=== PATIENT | male | born 1970 | race Caucasian/White ===

== ENCOUNTER 2022-07-25 07:19 | Day surgery (SDC) | payer OTHER, SELFPAY ==
--- NOTE | 2022-07-22 14:28 | HO.ANESPROP2 ---
Documented by User: Sindy Duarte NP 07/22/22 14:28 HPI - Anesthesia Eval Consult details Narrative: 52yo for Upper Endoscopy and Colonoscopy FOR[facility]LY [facility], LATER [facility] Past Medical History Medical History Diabetes GERD (gastroesophageal reflux disease) HTN (hypertension) Hyperlipidemia Sleep apnea treated with continuous positive airway pressure (CPAP) Social History Social History Patient Tobacco Use Status: Never used Tobacco Use of substances other than those prescribed or required for medical reasons: No Are you DNR?: No Advance Directives: No Advance Directives Information Provided: Yes Meds Allergies Allergy/AdvReac Type Severity Reaction Status Date / Time bee pollen [bee stings] Allergy Unknown Verified 07/22/22 14:13 [id number] Reductase AdvReac Unknown Verified 07/25/22 08:14 Inhibitor Home Medications Medication Instructions Recorded Confirmed Last Taken Type bupropion HCl 300 mg 24 hr tablet, 300 mg PO DAILY 07/22/22 07/22/22 Unknown History extended release epinephrine 0.3 mg/0.3 mL 0.3 ml IM ONCE PRN Anaphylaxis 07/22/22 07/22/22 Unknown History injection, auto-injector ibuprofen 800 mg tablet 800 mg PO TID 07/22/22 07/22/22 Unknown History insulin glargine-yfgn 100 unit/mL unit subcut 07/22/22 07/22/22 Unknown History subcutaneous solution (Semglee (insulin glargine-yfgn)) insulin syringe-needle U-100 1/2 07/22/22 07/22/22 Unknown History mL 31 gauge x 15/64 (BD Veo Insulin Syringe Ultra-Fine) losartan 25 mg tablet 25 mg PO DAILY 07/22/22 07/22/22 07/25/22 History lovastatin 40 mg tablet 40 mg PO DAILY 07/22/22 07/22/22 Unknown History metformin 750 mg tablet,extended PO 07/22/22 Unknown History release 24 hr Exam Exam Date and Time: July 22, [id number] Assessment and Plan Assessment Anesthesia Assessment: Chart Reviewed Documented by User: Vinita Starr MD 07/25/22 09:27 [facility] Past Medical History Medical History Diabetes GERD (gastroesophageal reflux disease) HTN (hypertension) Hyperlipidemia Sleep apnea treated with continuous positive airway pressure (CPAP) Family History Family history of problems with anesthesia: No Surgical History History of Problems with Anesthesia: No Social History Social History Patient Tobacco Use Status: Never used Tobacco Use of substances other than those prescribed or required for medical reasons: No Are you DNR?: No Advance Directives: No Advance Directives Information Provided: Yes Meds Allergies Allergy/AdvReac Type Severity Reaction Status Date / Time bee pollen [bee stings] Allergy Unknown Verified 07/22/22 14:13 [id number] Reductase AdvReac Unknown Verified 07/25/22 08:14 Inhibitor Home Medications Medication Instructions Recorded Confirmed Last Taken Type bupropion HCl 300 mg 24 hr tablet, 300 mg PO DAILY 07/22/22 07/22/22 Unknown History extended release epinephrine 0.3 mg/0.3 mL 0.3 ml IM ONCE PRN Anaphylaxis 07/22/22 07/22/22 Unknown History injection, auto-injector ibuprofen 800 mg tablet 800 mg PO TID 07/22/22 07/22/22 Unknown History insulin glargine-yfgn 100 unit/mL unit subcut 07/22/22 07/22/22 Unknown History subcutaneous solution (Semglee (insulin glargine-yfgn)) insulin syringe-needle U-100 1/2 07/22/22 07/22/22 Unknown History mL 31 gauge x 15/64 (BD Veo Insulin Syringe Ultra-Fine) losartan 25 mg tablet 25 mg PO DAILY 07/22/22 07/22/22 07/25/22 History lovastatin 40 mg tablet 40 mg PO DAILY 07/22/22 07/22/22 Unknown History metformin 750 mg tablet,extended PO 07/22/22 Unknown History release 24 hr Exam Height,Weight and Vital Signs: Height 5 ft 8 in Weight 129.274 kg Vital Signs Temp Pulse Resp BP Pulse Ox O2 Del Method 07/25/22 08:31 96.9 F 86 16 140/87 H 96 Room Air Pertinent Lab Results Pertinent Lab Results: Lab Results 07/25/22 07/25/22 07/25/22 Range/Units 08:22 08:22 08:36 WBC 5.8 (4.8-10.8) X10*3/uL RBC 5.06 (4.60-5.80) X10*6/uL Hgb 14.9 (14.0-18.0) g/dl Hct 44.1 (42.0-52.0) % MCV 87.2 (80.0-98.0) fL MCH 29.4 (27.0-33.0) pg MCHC 33.8 (31.0-36.0) g/dl RDW 13.0 (11.0-16.0) % Plt Count 155 L (160-400) X10*3/uL MPV 11.8 (9.4-12.4) fL Immature Gran % (Auto) 0.3 (0.0-0.4) % Neut % (Auto) 52.4 (45-73) % Lymph % (Auto) 35.0 (20-40) % Ellis % (Auto) 7.5 (2-11) % Eos % (Auto) 3.9 (0-4) % Baso % (Auto) 0.9 (0-2) % Lymph # (Auto) 2.0 (1.2-4.9) X10*3/uL Ellis # (Auto) 0.4 (0.1-1.2) X10*3/uL Eos # (Auto) 0.2 (0.0-0.4) X10*3/uL Baso # (Auto) 0.1 (0.0-0.2) X10*3/uL Abs Immat Gran (auto) 0.02 (0.00-0.03) X10*3/uL Absolute Neuts (auto) 3.1 (2.0-8.3) x10*3/uL Absolute Nucleated RBC 0.000 (0.0-0.012) X10*3/uL Nucleated RBC % (auto) 0.0 (0.0-0.2) /100WBC PT 13.4 H (10.0-13.1) SEC INR 1.2 H (0.9-1.1) POC Glucose 114 (60-115) mg/dL Airway Mallampati Class: III TM Dist: >3cm Neck ROM: Full (but occasional pain ) Loose/Missing/Broken Teeth: Yes (Missing molars. Denies broken or loose teeth) Heart: RRR Lungs: CTAB Assessment and Plan Assessment Anesthesia Assessment: Anesthesia Plan Discussed Final Anesthetic Review Family History of Problems with Anesthesia: No History of Problems with Anesthesia: No NPO: Yes ASA Class: III Final Preanesthetic Review: No Changes in Pt Med Stat, Meds/Allgs Chart Reviewed, Consent Obtained/Reviewed and Anes Risks/Benef Reviewed Patient Risk: Intermediate Procedure Risk: Low Assessment/Block/Sedation in SS: Assess/Block/Sedation-SS Anesthetic Plan Anesthetic Plan: GA and MAC: Disposition: Standard PACU
[2022-07-25 08:15] VITALS: BMI 43.3
[2022-07-25 08:26] LABS: MANUAL DIFF FLAG NO
[2022-07-25 08:31] VITALS: BP 140/87; PULSE 86; RESP 16; TEMP 36.1; O2SAT 96
[2022-07-25 08:33] LABS: Basophils Absolute Auto 0.1 X10*3/uL (0.0-0.2); Basophils Percent Auto 0.9 % (0-2); Eosinophils Absolute Auto 0.2 X10*3/uL (0.0-0.4); Eosinophils Percent Auto 3.9 % (0-4); Hematocrit 44.1 % (42.0-52.0); Hemoglobin 14.9 g/dl (14.0-18.0); Imm Gran Abs Auto 0.02 X10*3/uL (0.00-0.03); Imm Gran Pct Auto 0.3 % (0.0-0.4); Mean Corpuscular HGB Conc 33.8 g/dl (31.0-36.0); Mean Corpuscular Hemoglobin 29.4 pg (27.0-33.0); Mean Corpuscular Volume 87.2 fL (80.0-98.0); Mean Platelet Volume 11.8 fL (9.4-12.4); Monocytes Absolute Auto 0.4 X10*3/uL (0.1-1.2); Monocytes Percent Auto 7.5 % (2-11); Neutrophils Absolute Auto 3.1 x10*3/uL (2.0-8.3); Neutrophils Percent Auto 52.4 % (45-73); Platelet Count 155 X10*3/uL (160-400); Red Blood Count 5.06 X10*6/uL (4.60-5.80); White Blood Count 5.8 X10*3/uL (4.8-10.8)
[2022-07-25 08:40] LABS: Glucose, Whole Blood 114 mg/dL (60-115)
[2022-07-25] MEDS: Lactated Ringers 1,000 ML 100 ML IVCONT (08:47)
[2022-07-25 08:51] LABS: INTERNATIONAL NORM RATIO 1.2 (0.9-1.1); Prothrombin Time 13.4 SEC (10.0-13.1)
--- NOTE | 2022-07-25 10:07 | PM.OP ---
Brief Operative Note Date of Service: 07/25/22 Pre-op diagnosis: GERD, Screening Post-op diagnosis: other (Duodenitis, Diverticulosis) Procedure: EGD with biopsies, Colonoscopy to the cecum and TI Surgeon: Cayetano Fraser Anesthesia: MAC Was an Vacuum System Tester used for this Procedure?: No Estimated blood loss (mL): 2.0 Pathology: other (A. Gastric antrum B. EG Junction at 40cm) Condition: stable Disposition: PACU
[2022-07-25 10:10] VITALS: BP 97/42; PULSE 98; RESP 16; TEMP 36.6; O2SAT 98
[2022-07-25 10:13] LABS: Glucose, Whole Blood 127 mg/dL (60-115)
[2022-07-25 10:25] VITALS: BP 138/82; PULSE 84; RESP 16; O2SAT 95
--- NOTE | 2022-07-25 11:01 | OP_ITS ---
DATE OF SERVICE: 07/25/2022 SURGEON: Cayetano Fraser MD INDICATIONS: The patient presents for evaluation of gastroesophageal reflux and colorectal cancer screening. Full consent has been obtained from him for this, including risks of bleeding and perforation. PREOPERATIVE DIAGNOSIS: Gastroesophageal reflux and screening. POSTOPERATIVE DIAGNOSIS: Gastroesophageal reflux and screening, minimal hiatal hernia, mild gastritis, duodenitis, sigmoid diverticulosis, and internal hemorrhoids. PROCEDURE PERFORMED: Esophagogastroduodenoscopy with biopsies, and colonoscopy to the cecum and terminal ileum. ESTIMATED BLOOD LOSS: COMPLICATIONS: ANESTHESIA: Monitored anesthesia care. ASSISTANTS: SPECIMENS: DESCRIPTION OF PROCEDURE: The patient was placed in the left lateral decubitus position. The Olympus video gastroscope was passed in the posterior oropharynx and upper esophagus under direct vision. The scope was passed slowly to the distal esophagus. The gastroesophageal junction appeared at 40 cm. There was some very minimal irregularity but no evidence of esophagitis nor any gross evidence of Marks's mucosa. The scope entered the stomach. There was a minimal hiatal hernia. The scope was advanced to pylorus, and the duodenum was cannulated to the descending portion. The duodenum including the bulb appeared normal other than some mild changes of duodenitis in the duodenal bulb with some erythema and edema. There were no erosions or ulcerations. The scope was withdrawn back in the stomach. The gastric antrum and body appeared normal with good peristalsis other than some minimal areas of erythema and edema. Biopsies were obtained from the antrum. The scope was retroflexed visualizing the proximal stomach carefully which appeared normal, without any sign of mass or ulceration. The scope was straightened and withdrawn back to the esophagus. Biopsies were obtained at the EG junction at 40 cm. The esophageal mucosa proximal to this appeared normal. The scope was withdrawn from the patient. He was turned around for the colonoscopy. The digital rectal exam revealed no abnormalities. The Olympus video pediatric colonoscope was entered into the rectum and advanced easily to the cecum. Once in the cecum I did identify a normal-appearing cecal pouch with appendiceal orifice and a normal-appearing ileocecal valve. The terminal ileum was cannulated and appeared normal. The scope was withdrawn back in the colon. The entire cecum and ileocecal valve appeared normal. The scope was slowly withdrawn assessing all mucosal surfaces carefully. Preparation was excellent. I did not visualize any sign of polyps, colitis, or angiodysplasia. There were occasional diverticula noted in the sigmoid colon. In the rectum, scope was retroflexed visualizing small internal hemorrhoids, but no other pathology. The rectal mucosa appeared normal. The scope was straightened and withdrawn from the patient. He tolerated both procedures well and was returned to the recovery area in stable condition. IMPRESSION: 1. Minimal hiatal hernia. 2. Duodenitis. 3. Minimal gastritis. 4. Occasional sigmoid diverticulosis. 5. Small internal hemorrhoids. PLAN: The results of the pathology will be checked. I would recommend a repeat colonoscopy in 10 years for further screening. He will continue his antacids on a p.r.n. basis in regard to the reflux. At this point, he does not need any prescription medication unless his symptoms were to increase. He was advised not to use any NSAIDs nor aspirin for 1 week. He will otherwise see me on a p.r.n. basis. MD JEMIMA Oscar/SUMI / [id number]
== END 2022-07-25 11:03 | disposition home or self-care (01) ==
PROVIDERS: PCP Nurse Practitioner Adult Health; Visit Provider Internal Medicine
PROC: (CPT 45378; principal; 2022-07-25 08:40)
DX: Z12.11 Encounter for screening for malignant neoplasm of colon (principal); K57.30 Diverticulosis of large intestine without perforation or abscess without bleeding; K64.8 Other hemorrhoids; K21.9 Gastro-esophageal reflux disease without esophagitis; K29.50 Unspecified chronic gastritis without bleeding; K29.80 Duodenitis without bleeding; K44.9 Diaphragmatic hernia without obstruction or gangrene; I10 Essential (primary) hypertension; E78.5 Hyperlipidemia, unspecified; E11.9 Type 2 diabetes mellitus without complications; G47.33 Obstructive sleep apnea (adult) (pediatric); Z99.89 Dependence on other enabling machines and devices; Z79.4 Long term (current) use of insulin; Z79.899 Other long term (current) drug therapy; Z88.8 Allergy status to other drugs, medicaments and biological substances
CPT/HCPCS: 45378; 43239; 36415; 82947; 85025; 85610; 88305; 88342; J2405; J2765